=== PATIENT | female | born 1940 | race Caucasian/White ===

== ENCOUNTER 2018-07-31 22:28 | Emergency (ER) | payer MEDICARE ==
[~2018-07-31] VITALS: Ht 167.6 cm; Wt 81.6 kg
[~2018-07-31 22:28] MED LIST: AMLODIPINE; BACTRIM DS TAB1 EACH PO; BENADRYL25 M1 PO; HCTZ; HUMALOG; LANTUS; PEPCID20 MG PO
--- OUTSIDE RECORDS SUMMARY | 2018-07-31 22:31 | XMS REPORT ---
Author Author [facility] Address Unknown Phone Unavailable Care Team Providers Care Pressurization Mechanic Name Role Phone Unavailable Unavailable Problems This patient has no known problems. Allergies, Adverse Reactions, Alerts This patient has no known allergies or adverse reactions. Medications This patient has no known medications.
[2018-07-31] MEDS ORDERED: FENTANYL 50 MCG/HR PATCH TOP SCH (23:00)
[2018-07-31] MEDS ORDERED: FENTANYL 50 MCG/HR PATCH ONE (23:02)
[2018-07-31 23:19] VITALS: BP 161/60
== END 2018-08-01 00:20 | disposition home or self-care (01) ==
LOC: ER 22:28
DX: M25.551 Pain in right hip (principal); S72.101A Unspecified trochanteric fracture of right femur, initial encounter for closed fracture; W18.30XA Fall on same level, unspecified, initial encounter; Y92.008 Other place in unspecified non-institutional (private) residence as the place of occurrence of the external cause; I10 Essential (primary) hypertension; E78.5 Hyperlipidemia, unspecified; N18.9 Chronic kidney disease, unspecified
CPT/HCPCS: 99283